=== PATIENT | female | born 1955 | race Caucasian/White ===

== ENCOUNTER → 2020-06-30 11:07 | Outpatient (CLI) | payer BC, SELFPAY ==
--- NOTE | ~2020-06-30 | MR_ITS ---
EXAMINATION: MR cervical spine wo con DATE: 06/30/2020 12:12 INDICATION: Neck pain. TECHNIQUE: Magnetic resonance imaging (MRI) of the cervical spine was performed without intravenous c ontrast. Sequences included sagittal T2-weighted FSE, sagittal STIR FSE, sagittal T1-weighted FSE, ax ial MERGE, and axial T2-weighted FSE. COMPARISON: None FINDINGS: There is 3 degrees dextrocurvature of cervical spine. There is 2 mm retrolisthesis of C4 on C5. Vertebral body heights are normal. There is mildly decreased disc height at C3-C4, moderately de creased disc height at C4-C5 and C5-C6, and severely decreased disc height at C6-C7. There are vanessa iomas in T4 and T6 vertebral bodies. The spinal cord signal intensity is normal. The following disc l evels are specifically discussed: C2-C3: The disc does not extend beyond the endplate margin. There is no uncovertebral joint osteoarth ritis. There is mild bilateral facet joint osteoarthritis. There is no neural foraminal stenosis. The re is no central canal stenosis. C3-C4: The disc does not extend beyond the endplate margin. There is no uncovertebral joint osteoarth ritis. There is moderate right facet joint osteoarthritis. There is likely ankylosis of left facet qing int with severe hypertrophy. There is mild bilateral neural foraminal stenosis. There is no central c anal stenosis. C4-C5: The disc is bulging. There is severe bilateral uncovertebral joint osteoarthritis. There is mo derate bilateral facet joint osteoarthritis. There is mild bilateral neural foraminal stenosis. There is mild central canal stenosis. C5-C6: The disc is bulging. There is severe bilateral uncovertebral joint osteoarthritis. There is mi ld right and moderate left facet joint osteoarthritis. There is mild bilateral neural foraminal steno sis. There is mild central canal stenosis. C6-C7: The disc is bulging. There is severe bilateral uncovertebral joint osteoarthritis. There is mi ld bilateral facet joint osteoarthritis. There is mild bilateral neural foraminal stenosis. There is mild central canal stenosis. C7-T1: The disc does not extend beyond the endplate margin. There is no uncovertebral joint osteoarth ritis. There is mild bilateral facet joint osteoarthritis. There is no neural foraminal stenosis. The re is no central canal stenosis. IMPRESSION: 1. Severe cervical spondylosis. Reviewed, dictated and finalized at location B.
== END ==
PROVIDERS: PCP Family Medicine; Visit Provider Nurse Practitioner Family
DX: M47.812 Spondylosis without myelopathy or radiculopathy, cervical region (principal)
CPT/HCPCS: 72141

== ENCOUNTER 2022-03-31 09:45 | Outpatient (CLI) | payer MEDICARE, SELFPAY ==
--- NOTE | ~2022-03-31 | US_ITS ---
US retroperitoneal comp 03/31/2022 11:23 Indication: Renal mass Procedure: High-resolution ultrasound of the kidneys and bladder using transabdominal technique Comparison: Ultrasound dated 11/17/2017 Findings: The right kidney is surgically absent. Left kidney measures 12.2 cm in length. No hydroneph rosis. At the upper pole of the left kidney there is a round 8 mm hyperechoic mass without significan t posterior features or internal vascularity. Bladder is trabeculated with diverticula. Left ureteral jet is identified. Impression: 1: Round 8 mm hyperechoic left renal mass, not seen on prior examination. Correlation with CT or MRI without and with contrast recommended to exclude enhancement and further characterize for fat content . 2: Trabeculated bladder wall with mild bladder wall thickening. Considerations include outlet obstruc tion, chronic cystitis and neurogenic bladder. Reviewed, dictated and finalized at location A. Impression: 1: Round 8 mm hyperechoic left renal mass, not seen on prior examination. Corre lation with CT or MRI without and with contrast recommended to exclude enhancem ent and further characterize for fat content. 2: Trabeculated bladder wall with mild bladder wall thickening. Considerations include outlet obstruction, chronic cystitis and neurogenic bladder.
== END 2022-03-31 09:46 | disposition home or self-care (01) ==
LOC: ANHIMG 09:47
PROVIDERS: PCP Family Medicine; Visit Provider Urology
DX: N28.89 Other specified disorders of kidney and ureter (principal); R93.41 Abnormal radiologic findings on diagnostic imaging of renal pelvis, ureter, or bladder
CPT/HCPCS: 76770

== ENCOUNTER 2022-04-21 14:42 | Emergency (ER) | payer MEDICARE, SELFPAY ==
[2022-04-21 14:43] VITALS: BP 124/80; PULSE 82; RESP 20; TEMP 36.4; O2SAT 97
--- NOTE | 2022-04-21 14:53 | PC.NURSE ---
RN back to triage after pt. having blood drawn. pt. repeatedly asking to lay down in triage. RN educated pt. she cannot lay down at this time. pt. repeatedly asking to lay down RN educated pt. that she can lay down after RN is done triaging pt. and pt. is put back in the waiting room. RN returned to triage after blood draw. pt. vomited all over self and told RN that she is just going to leave. Pt. requesting RN call family member so they can leave. pt. repeatedly not following directions or answering questions at this time. Pt. will not communicate with staff what is happening and whether pt. will be seen. pt. states I am just going to go home, I have never been treated like this and all of you will be reported. pt. amb out of ed w/ steady gait and returned home. pt. NAD upon departure.
--- NOTE | 2022-04-21 14:58 | PC.NURSE ---
contacted pt. for transport home.
--- NOTE | 2022-04-21 15:09 | PC.NURSE ---
spoke to pt related to her exiting the dept, offered her the chance to vent her frustrations related to not having a room to go to. educated that she would be next to go back. pt angry that protocols have been broken and visitor policies had changed. educated on reasons for change and informed on front of house protocols. pt remained agitated r/t her not being bale to lay on floor in triage area. explained to pt that laying on floor with emesis on it was not clean. was [facility] pillow placed below pt head for comfort. pt asked for call to to transport, call made. arrived and took pt home
== END 2022-04-21 15:22 | disposition left against medical advice (07) ==
LOC: ANHED 15:18
PROVIDERS: PCP Family Medicine
DX: Z53.21 Procedure and treatment not carried out due to patient leaving prior to being seen by health care provider (principal)
CPT/HCPCS: 99199

== ENCOUNTER 2022-10-13 10:48 | Outpatient (CLI) | payer MEDICARE, SELFPAY ==
--- NOTE | ~2022-10-13 | US_ITS ---
US retroperitoneal comp 10/13/2022 12:56 Procedure: Realtime transabdominal ultrasound of the kidneys and bladder. Indication: Status post right nephrectomy. Renal mass. Comparison: No prior studies for comparison. Findings: Left renal echotexture is normal. There is mild left hydronephrosis. Left kidney measures 1 2.2 cm in length. No solid masses or stones. Bladder wall is mildly prominent and trabeculated. Corre late for history of cystitis. Left ureteral jet is present. Impression: 1: Mild left hydronephrosis. 2: Mildly thickened trabeculated bladder wall. Correlate for cystitis. Reviewed, dictated and finalized at location A. HOMETRIC EXAMINER Impression: 1: Mild left hydronephrosis. 2: Mildly thickened trabeculated bladder wall. Correlate for cystitis.
== END 2022-10-13 10:49 | disposition home or self-care (01) ==
PROVIDERS: PCP Family Medicine; Visit Provider Urology
DX: N28.89 Other specified disorders of kidney and ureter (principal); N13.30 Unspecified hydronephrosis; R93.41 Abnormal radiologic findings on diagnostic imaging of renal pelvis, ureter, or bladder
CPT/HCPCS: 76770

== ENCOUNTER 2025-09-03 13:23 | Emergency (ER) | payer MEDICARE, SELFPAY ==
--- NOTE | 2025-09-03 13:24 | ED.FEMALEGU ---
HPI - Female Genitourinary General Chief complaint: Urogenital-Female Stated complaint: UTI Time Seen by Provider: 09/03/25 13:24 Source: patient Mode of arrival: ambulatory Limitations: no limitations History of Present Illness HPI Narrative: Neema is a 70-year-old female patient presenting to the clinic today with complaints of possible UTI x1 day. She reports she is having suprapubic pain, chills, some low back pain, and nausea started yesterday. She has to self cath due to spina bifida affecting her bladder. Denies any known fever. Has take in an unknown antibiotic and pain pill. Related Data Allergies Allergy/AdvReac Type Severity Reaction Status Date / Time acetaminophen Allergy Intermediate HIVES AND Verified 09/03/25 13:38 N/V codeine Allergy Intermediate HIVES AND Verified 09/03/25 13:38 N/V iohexol (From contrast - CT, Allergy Mild Hives Verified 09/03/25 13:38 X-RAY) Penicillins Allergy Mild Hives Verified 09/03/25 13:38 ciprofloxacin (From Cipro) AdvReac Mild Other Verified 09/03/25 13:38 Review of Systems Review of Systems: Pertinent positives per HPI. Patient denies any fever, chills, rash, headache, visual changes, dizziness, cough, shortness of breath, chest pain, palpitations, nausea, vomiting, diarrhea, constipation, abdominal pain, or any urinary issues. [facility] Family History Family History Father Family history of cardiovascular disease Mother Family history of malignant neoplasm of breast in first degree relative Social History Social History Smoking status: Never smoker Comments At the time of my signature, I reviewed and agree with the nursing past medical, surgical, social, and family history. There is no relevant family history pertinent to the patient complaint. Exam Narrative: General: Well-developed, well nourished, in no apparent distress. Head: Normocephalic, atraumatic. Cardio: Regular rate and rhythm, s1 and s2 normal, no murmur appreciated. Resp: Clear to auscultation bilaterally, no rhonchi, rales, wheezing or rubs. Abdomen: Soft, pliable, bowel sounds present in all quadrants, suprapubic tender to palpation, no organomegly, no CVAT tenderness. Course Course Emergency Course: Portions of this record may have been created with voice recognition software. Level of Care: Express Care Visit Vital Signs Vital signs: Vital Signs Temperature 36.6 C 09/03/25 13:32 Pulse Rate 73 09/03/25 13:32 Respiratory Rate 18 09/03/25 13:32 Blood Pressure 130/75 09/03/25 13:32 Pulse Oximetry 100 09/03/25 13:32 Oxygen Delivery Room Air 09/03/25 13:32 Temperature 36.6 C 09/03/25 13:32 Pulse Rate 73 09/03/25 13:32 Respiratory Rate 18 09/03/25 13:32 Blood Pressure 130/75 09/03/25 13:32 Pulse Oximetry 100 09/03/25 13:32 Oxygen Delivery Room Air 09/03/25 13:32 Vital signs reviewed MDM - Female Genitourinary MDM Narrative Medical decision making narrative: At the time of visit patient is resting comfortably on the exam table. Patient appears to be nontoxic. Complaints of possible UTI x1 day. She reports she is having suprapubic pain, chills, some low back pain, and nausea started yesterday. She has to self cath due to spina bifida affecting her bladder. Denies any known fever. Has take in an unknown antibiotic and pain pill. On exam patient has soft pliable abdomen wound, nondistended, mild tenderness over the suprapubic area, no CVAT tenderness, no organomegaly, bowel sounds are present all 4 quadrants, Urine dip and culture ordered. Labs: Patient self cath- Urinalysis dip was performed. Urine positive for 3+ leukocytes, nitrate positive, 2+ protein, and 2+ blood. We will send urine for culture. Plan: I suspect patient likely has early pyelonephritis/complicated UTI. We will send urine for culture. Patient is allergic to penicillins and ciprofloxacin. Prescription for Bactrim and Zofran was sent to the pharmacy. Supportive measures were discussed with the patient and they voiced understanding discharge instructions and agrees to treatment plan. Return precautions reviewed Differential Diagnosis Differential diagnosis: Likely urinary tract infection, cystitis and other (Pyelonephritis, complicated UTI) Lab Data Labs: Lab Results 09/03/25 Range/Units 13:40 POC Urine Color Yellow POC Urine Clarity Cloudy POC Urine pH 7.0 POC Ur Specif [place] 1.020 POC Urine Protein 2+ (Negative) POC Ur Glucose (UA) Negative (Negative) POC Urine Ketones Negative (Negative) POC Urine Blood 2+ (Negative) POC Urine Nitrite Positive (Negative) POC Urine Bilirubin Negative (Negative) POC Urine Urobilinogen 1.0 POC U Leukocyte Esteras 3+ (Negative) Discharge Plan Discharge Clinical Impression: Complicated urinary tract infection Patient Disposition: Home Condition: Stable Instructions: Antibiotic Form, Catheter-associated Urinary Tract Infection (ED) Additional Instructions: Take Bactrim and Zofran as prescribed Increase fluids and stay well hydrated Wipe front to back. May use wet wipes. Avoid tub baths If sexually active- pee before and after intercourse. Wear cotton panties Avoid tight clothing up against the genitals Follow up with your PCP in 1 week if symptoms persist. Patient Language: Greenlandic Prescriptions: New ondansetron 4 mg tablet,disintegrating 4 mg PO Q6H PRN (Reason: nausea and vomiting) 3 Days Qty: 12 0RF sulfamethoxazole-trimethoprim [Bactrim DS] 800-160 mg tablet 1 tablet PO Q12H 7 Days Qty: 14 0RF Follow-up/Referrals: Glynn Camilo MD [Primary Care Provider, Family Practice] Time of Disposition: 13:46 Quality NIHSS Nursing Documentation ED NIHSS nursing documentation: reviewed/agree
--- OUTSIDE RECORDS SUMMARY | 2025-09-03 13:25 | XMS_ITS | Clinical Summary ---
Author Organization [facility] Address Formerly [facility] [place] [address] Care Team Providers Care [employer] Name Role Phone Glynn Camilo MD Primary Care Provider [phone] Allergies Active Allergy Reactions Criticality Noted Date Comments Iodine Anaphylaxis High 04/21/2022 Penicillin G Benzathine Hives,Itching 2 Medications vitamin D3, cholecalciferol, 5000 UNITS capsule Take 5,000 Units by mouth daily. Active Pyridoxine HCl (VITAMIN B6) 250 MG Tab Take 250 mg by mouth daily. Active multi vitamin/minerals tablet Take 1 tablet by mouth daily. Active hydroCHLOROthiaz greer 25 MG tablet Take 25 mg by mouth daily. 12/05/2021 Active Active Problems Problem Noted Date Diagnosed Date SBO (small bowel obstruction) 04/21/2022 Social History Tobacco Use Types Packs/Day Years Used Date Smoking Tobacco: Never Smokeless Tobacco: Never Alcohol Use Standard Drinks/Week Comments Not Currently 0 (1 standard drink = 0.6 oz pur e alcohol) Comments No Sex and Gender Information Value Date Recorded Sex Assigned at Not on file Legal Sex Female 4:40 PM CDT Gender Identity Not on file Sexual Orientation Not on file Last Filed Vital Signs Vital Sign Reading Time Taken Comments Blood Pressure 128/72 04/22/2022 3:28 PM CDT Pulse 73 04/22/2022 3:28 PM CDT Temperature 36.9 C (98.4 F) 04/22/2022 3:28 PM CDT Respiratory Rate 12 04/22/2022 3:28 PM CDT Oxygen Saturation 99% 04/22/2022 3:28 PM CDT Inhaled Oxygen Concentration - - Weight 53.3 kg (117 lb 8.1 oz) 04/22/2022 6:00 A M CDT Height - - Body Mass Index - - Plan of Treatment Health Maintenance Due Date Last Done Comments Colorectal Cancer Screening Colonoscopy (10 Years) 1956 Hepatitis C 1974 DTaP, Tdap and Td Vaccines ( 1 - Tdap) 1975 Pneumococcal Vaccine: 50+ Years (1 of 1 - PCV) 2006 Zoster Vaccines (1 of 2) 2006 Annual Medicare Wellness Visit 2021 Dexa Scan (General) 2021 COVID-19 Vaccine (1 - 2024-2 6 season) 2025 Influenza Adult (#1) 2025 08/06/2020, 09/03/2019 RSV Immunization or 60+ Years (1 - 1-dose 75+ series) 2031 Hepatitis A Vaccines Aged Out No long er eligible based on patient's age to complete this topic Meningococcal B Vaccine Aged Out No l onger eligible based on patient's age to complete this topic Meningococcal Vaccine Aged Out No pippa eladia eligible based on patient's age to complete this topic RSV Immunizations Under 20 Months Aged Out No longer eligible b ased on patient's age to complete this topic Goals Goal Patient Goal Type Associated Problems Recent Progress Patient-Stated? Author Safety - demonstrates understanding of home safety measures General No Keke Harris, RN Insurance MEDICARE [facility] Advance Directives * Full Code (Latest Code Status on File) Date Activated Date Inactivated Comments 04/21/2022 9:47 PM 04/22/2022 9:06 PM Care Teams [employer] Relationship Specialty Start Date End Date Glynn Camilo MD [address] [place] [phone] PCP - General FAMILY PRACTICE 04/21/22
[2025-09-03 13:32] VITALS: BP 130/75; PULSE 73; RESP 18; TEMP 36.6; O2SAT 100
[2025-09-03 13:42] LABS: EDUAAPPEAR Cloudy; EDUABILI Negative (Negative); EDUABLOOD 2+ (Negative); EDUACOLOR1 Yellow; EDUAGLUCOSE Negative (Negative); EDUAKETONE Negative (Negative); EDUALEUKO 3+ (Negative); EDUANITRATE Positive (Negative); EDUAPH 7.0; EDUAPROTEIN 2+ (Negative); EDUASPGRAVITY 1.020; EDUAUROBILI 1.0
== END 2025-09-03 13:52 | disposition home or self-care (01) ==
PROVIDERS: Emergency Provider Nurse Practitioner Family; PCP Family Medicine
DX: N39.0 Urinary tract infection, site not specified (principal)
CPT/HCPCS: 81003; 87086; 87186; 99213; G0463